=== PATIENT | male | born 1975 | race African-American/Black ===

== ENCOUNTER 2018-01-08 20:32 | Emergency (ER) | payer SELFPAY ==
[~2018-01-08] VITALS: Ht 182.9 cm; Wt 77.3 kg
[2018-01-08] MEDS ORDERED: ALBUTEROL SULFATE 5 MG/ML 20 ML NEB SOLN [BULK] NEB ONE ×2 (20:45→22:45)
[2018-01-08] MEDS ORDERED: IPRATROPIUM BROMIDE 0.5 MG/2.5 ML NEB SOLUTION NEB ONE ×3 (20:45→22:45)
[2018-01-08] MEDS ORDERED: ALBU8HFA IH (20:54)
[2018-01-08] MEDS ORDERED: FLUT110HFA IH (20:54)
[2018-01-08] MEDS ORDERED: ALBUTEROL SULFATE 2.5 MG/0.5 ML NEB SOLUTION NEB ONE (22:00)
[2018-01-08] MEDS ORDERED: PredniSONE 20 MG TABLET PO ONE (22:30)
[2018-01-09 00:46] VITALS: BP 127/72
== END 2018-01-09 00:57 | disposition home or self-care (01) ==
LOC: EMS 20:32
DX: J45.909 Unspecified asthma, uncomplicated (principal)
CPT/HCPCS: 71045; 94060; 94640; 94644; 99285; J7512

== ENCOUNTER 2018-03-19 15:55 | Emergency (ER) | payer SELFPAY ==
[~2018-03-19] VITALS: Ht 182.9 cm; Wt 81.8 kg
[~2018-03-19 15:55] MED LIST: ALBU8HFA IH; FLUT110HFA IH
[2018-03-19] MEDS ORDERED: ALBUTEROL SULFATE 5 MG/ML 20 ML NEB SOLN [BULK] NEB ONE ×2 (16:05→16:15)
[2018-03-19] MEDS ORDERED: ALBUTEROL SULFATE 2.5 MG/0.5 ML NEB SOLUTION NEB ONE (16:15)
[2018-03-19] MEDS ORDERED: IPRATROPIUM BROMIDE 0.5 MG/2.5 ML NEB SOLUTION NEB ONE ×3 (16:15)
[2018-03-19] MEDS ORDERED: MethylPREDNISolone SOD SUCC 125 MG/2 ML VIAL IVP ONE (16:15)
[2018-03-19] MEDS ORDERED: MAGNESIUM SULFATE 4 GM/WATER 100 ML IV ONE (16:15)
[2018-03-19 16:29] LABS: BASOPHILS % (AUTO) 0.6 % (0.0-2.0); EOSINOPHILS % (AUTO) 2.2 % (1.0-6.0); HEMATOCRIT 46.7 % (41-53); HEMOGLOBIN 15.3 g/dL (13.5-17.5); LYMPHOCYTES # (AUTO) 1.3 K/uL (1.0-4.8); LYMPHOCYTES % (AUTO) 10.9 % (22.0-44.0); MEAN CORPUSCULAR HEMOGLOBIN 27.3 pg (26.0-34.0); MEAN CORPUSCULAR HGB CONC 32.7 G/dL (31.0-37.0); MEAN CORPUSCULAR VOLUME 84 fL (80-100); MONOCYTES # (AUTO) 0.8 K/uL (0.1-1.0); MONOCYTES % (AUTO) 6.2 % (2.0-9.0); NEUTROPHILS # (AUTO) 9.8 K/uL (1.8-7.7); NEUTROPHILS % (AUTO) 80.1 % (40.0-70.0); PLATELET COUNT (AUTO) 255 K/uL (150-450); RED BLOOD CELL COUNT(AUTO) 5.59 MIL/uL (4.50-5.90); RED CELL DISTRIBUTION WIDTH 14.1 % (11.5-14.5)
[2018-03-19 16:37] LABS: ANION GAP 3 mmol/L (8-16); CARBON DIOXIDE 32 mmol/L (22-29); CHLORIDE 101 mmol/L (98-107); CREATININE 0.81 mg/dL (0.60-1.30); GLOMERULAR FILTR. RATE CALC > 60 mL/min (>60); GLUCOSE,RANDOM 76 mg/dL (70-110); POTASSIUM 3.9 mmol/L (3.5-5.1); SODIUM SERUM 136 mmol/L (136-145); UREA NITROGEN, BLOOD 8 mg/dL (7-18)
[2018-03-19 16:43] LABS: ALANINE AMINOTRANSFERASE 24 U/L (12-78); ALBUMIN 3.7 g/dL (3.4-5.0); ALKALINE PHOSPHATASE 93 U/L (46-116); ASPARTATE AMINOTRANSFERASE 19 U/L (15-37); BILIRUBIN,TOTAL 0.2 mg/dL (0.1-1.0); TOTAL PROTEIN, SERUM 7.8 g/dL (6.4-8.2)
[2018-03-19] MEDS ORDERED: LEVALBUTEROL HCL 1.25 MG/0.5 ML NEB SOLUTION NEB ONE (19:10)
[2018-03-19] MEDS ORDERED: ALBUTEROL SULFATE HFA 90 MCG/PUFF 8 GM INHALER IH ONE (19:45)
[2018-03-19 20:16] VITALS: BP 116/56
== END 2018-03-19 20:20 | disposition home or self-care (01) ==
LOC: EMS 15:56
DX: J45.901 Unspecified asthma with (acute) exacerbation (principal)
CPT/HCPCS: 36415; 71045; 80053; 85025; 94640; 94644; 94645; 96365; 96366; 96375; 99285; J2930; J3475; J3535

== ENCOUNTER 2018-04-14 09:04 | Emergency (ER) | payer SELFPAY ==
[~2018-04-14] VITALS: Ht 182.9 cm; Wt 81.8 kg
[2018-04-14] MEDS ORDERED: IPRATROPIUM BROMIDE 0.5 MG/2.5 ML NEB SOLUTION NEB ONE ×2 (09:30→10:30)
[2018-04-14] MEDS ORDERED: ALBUTEROL SULFATE 2.5 MG/0.5 ML NEB SOLUTION NEB ONE ×2 (09:30→10:30)
[2018-04-14] MEDS ORDERED: MethylPREDNISolone SOD SUCC 125 MG/2 ML VIAL IVP ONE (10:30)
[2018-04-14] MEDS ORDERED: ALBUTEROL SULFATE HFA 90 MCG/PUFF 8 GM INHALER IH ONE (11:45)
[2018-04-14 11:59] VITALS: BP 127/83
== END 2018-04-14 12:00 | disposition home or self-care (01) ==
LOC: EMS 09:05
DX: J45.901 Unspecified asthma with (acute) exacerbation (principal)
CPT/HCPCS: 71045; 94640; 96374; 99291; J2930; J3535

== ENCOUNTER 2018-05-02 10:33 | Emergency (ER) | payer SELFPAY ==
[~2018-05-02] VITALS: Ht 182.9 cm; Wt 81.8 kg
[2018-05-02] MEDS ORDERED: IPRATROPIUM BROMIDE 0.5 MG/2.5 ML NEB SOLUTION NEB ONE (12:15)
[2018-05-02] MEDS ORDERED: PredniSONE 20 MG TABLET PO ONE (12:15)
[2018-05-02] MEDS ORDERED: ALBUTEROL SULFATE 2.5 MG/0.5 ML NEB SOLUTION NEB ONE (12:15)
[2018-05-02] MEDS ORDERED: EPINEPHrine 1:1,000 [1 MG/ML] AMP SQ ONE (13:15)
[2018-05-02] MEDS ORDERED: ALBUTEROL SULFATE 5 MG/ML 20 ML NEB SOLN [BULK] NEB ONE (13:15)
[2018-05-02] MEDS ORDERED: ALBUTEROL SULFATE HFA 90 MCG/PUFF 8 GM INHALER IH ONE (14:00)
[2018-05-02 14:21] VITALS: BP 128/68
== END 2018-05-02 14:34 | disposition home or self-care (01) ==
LOC: EMS 10:35
DX: J45.901 Unspecified asthma with (acute) exacerbation (principal)
CPT/HCPCS: 94640; 94644; 99285; J7512; 94060; J3535

== ENCOUNTER 2018-05-26 02:01 | Emergency (ER) | payer SELFPAY ==
[~2018-05-26] VITALS: Ht 182.9 cm; Wt 81.8 kg
[2018-05-26] MEDS ORDERED: 0.9% SODIUM CHLORIDE 5 ML NEB SOLUTION NEB ONE ×2 (02:06→03:36)
[2018-05-26] MEDS ORDERED: IPRATROPIUM BROMIDE 0.5 MG/2.5 ML NEB SOLUTION NEB ONE ×2 (02:15→03:45)
[2018-05-26] MEDS ORDERED: MethylPREDNISolone SOD SUCC 125 MG/2 ML VIAL IVP ONE (02:15)
[2018-05-26] MEDS ORDERED: ALBUTEROL SULFATE 5 MG/ML 20 ML NEB SOLN [BULK] NEB ONE ×2 (02:15→03:45)
[2018-05-26] MEDS ORDERED: ALBUTEROL SULFATE HFA 90 MCG/PUFF 8 GM INHALER IH ONE (02:15)
[2018-05-26 04:47] VITALS: BP 135/82
== END 2018-05-26 04:56 | disposition home or self-care (01) ==
LOC: EMS 02:03
DX: J45.901 Unspecified asthma with (acute) exacerbation (principal)
CPT/HCPCS: 94640; 94644; 94645; 96374; 99291; J2930; J3535

== ENCOUNTER 2018-06-05 05:28 | Emergency (ER) | payer MEDICAID ==
[~2018-06-05] VITALS: Ht 182.9 cm; Wt 81.8 kg
[~2018-06-05 05:28] MED LIST changes: -FLUT110HFA IH
[2018-06-05] MEDS ORDERED: 0.9% SODIUM CHLORIDE 5 ML NEB SOLUTION NEB ONE (05:39)
[2018-06-05] MEDS ORDERED: ALBUTEROL SULFATE 5 MG/ML 20 ML NEB SOLN [BULK] NEB ONE (05:45)
[2018-06-05] MEDS ORDERED: IPRATROPIUM BROMIDE 0.5 MG/2.5 ML NEB SOLUTION NEB ONE (05:45)
[2018-06-05] MEDS ORDERED: PredniSONE 20 MG TABLET PO ONE (06:30)
[2018-06-05] MEDS ORDERED: EPINEPHrine 1:1,000 [1 MG/ML] AMP SQ ONE (06:30)
[2018-06-05] MEDS ORDERED: ALBUTEROL SULFATE HFA 90 MCG/PUFF 8 GM INHALER IH ONE (07:00)
[2018-06-05] MEDS ORDERED: BECLOMETHASONE DIPR HFA 80 MCG/PUFF 10.6 GM INHALER IH ONE (07:00)
[2018-06-05 08:57] VITALS: BP 132/69
== END 2018-06-05 09:02 | disposition home or self-care (01) ==
LOC: EMS 05:30
DX: J45.901 Unspecified asthma with (acute) exacerbation (principal)
CPT/HCPCS: 94640; 94644; 96372; 99285; J0171; J7512; J3535

== ENCOUNTER 2018-07-17 11:31 | Emergency (ER) | payer SELFPAY ==
[~2018-07-17] VITALS: Ht 182.9 cm; Wt 81.8 kg
[2018-07-17] MEDS ORDERED: ADV250 IH (11:39)
[2018-07-17] MEDS ORDERED: 0.9% SODIUM CHLORIDE 5 ML NEB SOLUTION NEB ONE ×2 (11:43→12:29)
[2018-07-17] MEDS ORDERED: ALBUTEROL SULFATE 2.5 MG/0.5 ML NEB SOLUTION NEB ONE (11:45)
[2018-07-17] MEDS ORDERED: IPRATROPIUM BROMIDE 0.5 MG/2.5 ML NEB SOLUTION NEB ONE (11:45)
[2018-07-17] MEDS ORDERED: MethylPREDNISolone SOD SUCC 125 MG/2 ML VIAL IM ONE (12:30)
[2018-07-17] MEDS ORDERED: ALBUTEROL SULFATE 5 MG/ML 20 ML NEB SOLN [BULK] NEB ONE (12:30)
[2018-07-17 13:53] VITALS: BP 135/75
== END 2018-07-17 14:21 | disposition home or self-care (01) ==
LOC: EMS 11:31
DX: J45.901 Unspecified asthma with (acute) exacerbation (principal)
CPT/HCPCS: 94640; 96372; 99284; J2930

== ENCOUNTER 2018-08-06 05:11 | Emergency (ER) | payer SELFPAY ==
[~2018-08-06] VITALS: Ht 182.9 cm; Wt 81.8 kg
[~2018-08-06 05:11] MED LIST changes: +ADV250 IH
[2018-08-06] MEDS ORDERED: IPRATROPIUM BROMIDE 0.5 MG/2.5 ML NEB SOLUTION NEB ONE (05:45)
[2018-08-06] MEDS ORDERED: ALBUTEROL SULFATE 5 MG/ML 20 ML NEB SOLN [BULK] NEB ONE ×2 (05:45→07:30)
[2018-08-06] MEDS ORDERED: PredniSONE 20 MG TABLET PO ONE (06:00)
[2018-08-06 10:40] VITALS: BP 128/81
[2018-08-06] MEDS ORDERED: ALBUTEROL SULFATE HFA 90 MCG/PUFF 8 GM INHALER IH ONE (10:45)
== END 2018-08-06 10:52 | disposition home or self-care (01) ==
LOC: EMS 05:11
DX: J45.901 Unspecified asthma with (acute) exacerbation (principal); Z79.899 Other long term (current) drug therapy
CPT/HCPCS: 71045; 94640; 94644; 94645; 99285; J7512; J3535

== ENCOUNTER 2018-08-20 18:15 | Emergency (ER) | payer SELFPAY ==
[~2018-08-20] VITALS: Ht 182.9 cm; Wt 81.8 kg
[2018-08-20] MEDS ORDERED: ALBUTEROL SULFATE 5 MG/ML 20 ML NEB SOLN [BULK] NEB ONE (18:30)
[2018-08-20] MEDS ORDERED: IPRATROPIUM BROMIDE 0.5 MG/2.5 ML NEB SOLUTION NEB ONE (18:30)
[2018-08-20] MEDS ORDERED: PredniSONE 20 MG TABLET PO ONE (18:30)
[2018-08-20] MEDS ORDERED: 0.9% SODIUM CHLORIDE 5 ML NEB SOLUTION NEB ONE (18:35)
[2018-08-20] MEDS ORDERED: ALBUTEROL SULFATE HFA 90 MCG/PUFF 8 GM INHALER IH ONE (20:00)
[2018-08-20 20:07] VITALS: BP 109/75
== END 2018-08-20 20:11 | disposition home or self-care (01) ==
LOC: EMS 18:15
DX: J45.909 Unspecified asthma, uncomplicated (principal)
CPT/HCPCS: 94640; 94644; 99285; J7512; J3535

== ENCOUNTER 2018-09-07 19:56 | Emergency (ER) | payer SELFPAY ==
[~2018-09-07] VITALS: Ht 182.9 cm; Wt 81.8 kg
[2018-09-07] MEDS ORDERED: ALBUTEROL SULFATE 5 MG/ML 20 ML NEB SOLN [BULK] NEB ONE ×2 (20:04→20:45)
[2018-09-07] MEDS ORDERED: IPRATROPIUM BROMIDE 0.5 MG/2.5 ML NEB SOLUTION NEB ONE ×2 (20:04→20:45)
[2018-09-07] MEDS ORDERED: PredniSONE 20 MG TABLET PO ONE (21:15)
[2018-09-07 22:00] VITALS: BP 111/64
[2018-09-07] MEDS ORDERED: ALBUTEROL SULFATE HFA 90 MCG/PUFF 8 GM INHALER IH ONE (22:30)
== END 2018-09-07 22:42 | disposition home or self-care (01) ==
LOC: EMS 19:57
DX: J45.909 Unspecified asthma, uncomplicated (principal); Z79.899 Other long term (current) drug therapy
CPT/HCPCS: 94640; 94644; 99285; J7512; J3535

== ENCOUNTER 2018-10-18 07:23 | Emergency (ER) | payer SELFPAY ==
[~2018-10-18] VITALS: Ht 182.9 cm; Wt 86.4 kg
[2018-10-18] MEDS ORDERED: ALBUTEROL SULFATE HFA 90 MCG/PUFF 8 GM INHALER IH ONE (07:45)
[2018-10-18] MEDS ORDERED: IPRATROPIUM BROMIDE 0.5 MG/2.5 ML NEB SOLUTION NEB ONE ×2 (07:45→09:45)
[2018-10-18] MEDS ORDERED: ALBUTEROL SULFATE 5 MG/ML 20 ML NEB SOLN [BULK] NEB ONE ×2 (07:45→09:45)
[2018-10-18] MEDS ORDERED: 0.9% SODIUM CHLORIDE 15 ML NEB SOLUTION NEB ONE ×2 (08:26→09:52)
[2018-10-18] MEDS ORDERED: PredniSONE 20 MG TABLET PO ONE (09:30)
[2018-10-18 11:13] VITALS: BP 122/72
== END 2018-10-18 11:28 | disposition home or self-care (01) ==
LOC: EMS 07:24
DX: J45.901 Unspecified asthma with (acute) exacerbation (principal); Z79.899 Other long term (current) drug therapy
CPT/HCPCS: 94640; 94644; 94645; 99285; J7512; J3535

== ENCOUNTER 2018-10-26 06:48 | Emergency (ER) | payer SELFPAY ==
[~2018-10-26] VITALS: Ht 182.9 cm; Wt 81.8 kg
[2018-10-26] MEDS ORDERED: ALBUTEROL SULFATE 2.5 MG/0.5 ML NEB SOLUTION NEB ONE (07:00)
[2018-10-26] MEDS ORDERED: IPRATROPIUM BROMIDE 0.5 MG/2.5 ML NEB SOLUTION NEB ONE ×3 (07:00→08:30)
[2018-10-26 08:20] VITALS: BP 145/80
[2018-10-26] MEDS ORDERED: ALBUTEROL SULFATE 5 MG/ML 20 ML NEB SOLN [BULK] NEB ONE ×2 (08:30)
[2018-10-26] MEDS ORDERED: PredniSONE 20 MG TABLET PO ONE (08:45)
[2018-10-26] MEDS ORDERED: ALBUTEROL SULFATE HFA 90 MCG/PUFF 8 GM INHALER IH ONE ×2 (10:30→10:45)
== END 2018-10-26 11:18 | disposition home or self-care (01) ==
LOC: EMS 06:50
DX: J45.909 Unspecified asthma, uncomplicated (principal)
CPT/HCPCS: 94640; 99285; J7512; J3535

== ENCOUNTER 2018-11-05 12:20 | Emergency (ER) | payer SELFPAY ==
[~2018-11-05] VITALS: Ht 182.9 cm; Wt 81.8 kg
[2018-11-05] MEDS ORDERED: ALBUTEROL SULFATE 5 MG/ML 20 ML NEB SOLN [BULK] NEB ONE ×2 (12:25→12:45)
[2018-11-05] MEDS ORDERED: IPRATROPIUM BROMIDE 0.5 MG/2.5 ML NEB SOLUTION NEB ONE ×2 (12:25→12:45)
[2018-11-05] MEDS ORDERED: MAGNESIUM SULFATE 2 GM/WATER 50 ML IV ONE (12:30)
[2018-11-05] MEDS ORDERED: MethylPREDNISolone SOD SUCC 125 MG/2 ML VIAL IVP ONE (12:30)
[2018-11-05 14:52] VITALS: BP 117/68
== END 2018-11-05 15:08 | disposition home or self-care (01) ==
LOC: EMS 12:22
DX: J45.909 Unspecified asthma, uncomplicated (principal); Z79.899 Other long term (current) drug therapy
CPT/HCPCS: 94644; 96365; 96366; 96375; 99291; J2930; J3475

== ENCOUNTER 2018-11-17 11:23 | Emergency (ER) | payer SELFPAY ==
[~2018-11-17] VITALS: Ht 183.5 cm; Wt 84.1 kg
[2018-11-17] MEDS ORDERED: IPRATROPIUM BROMIDE 0.5 MG/2.5 ML NEB SOLUTION NEB ONE ×3 (11:45→14:15)
[2018-11-17] MEDS ORDERED: ALBUTEROL SULFATE 2.5 MG/0.5 ML NEB SOLUTION NEB ONE (11:45)
[2018-11-17] MEDS ORDERED: PredniSONE 20 MG TABLET PO ONE (12:00)
[2018-11-17] MEDS ORDERED: ALBUTEROL SULFATE 5 MG/ML 20 ML NEB SOLN [BULK] NEB ONE ×2 (12:00→14:15)
[2018-11-17] MEDS ORDERED: ALBUTEROL SULFATE HFA 90 MCG/PUFF 8 GM INHALER IH ONE (12:15)
[2018-11-17 15:27] VITALS: BP 114/57
== END 2018-11-17 15:34 | disposition home or self-care (01) ==
LOC: EMS 11:24
DX: J45.901 Unspecified asthma with (acute) exacerbation (principal); Z79.899 Other long term (current) drug therapy
CPT/HCPCS: 94640; 94644; 94645; 99285; J7512; J3535

== ENCOUNTER 2018-12-04 07:09 | Emergency (ER) | payer SELFPAY ==
[~2018-12-04] VITALS: Ht 182.9 cm; Wt 84.1 kg
[2018-12-04] MEDS ORDERED: ALBUTEROL SULFATE 5 MG/ML 20 ML NEB SOLN [BULK] NEB ONE ×2 (07:45→09:45)
[2018-12-04] MEDS ORDERED: PredniSONE 20 MG TABLET PO ONE (07:45)
[2018-12-04] MEDS ORDERED: IPRATROPIUM BROMIDE 0.5 MG/2.5 ML NEB SOLUTION NEB ONE ×2 (07:45→09:45)
[2018-12-04] MEDS ORDERED: 0.9% SODIUM CHLORIDE 5 ML NEB SOLUTION NEB ONE ×2 (07:48→09:50)
[2018-12-04 10:46] VITALS: BP 133/70
[2018-12-04] MEDS ORDERED: ALBUTEROL SULFATE HFA 90 MCG/PUFF 8 GM INHALER IH ONE (11:30)
== END 2018-12-04 11:37 | disposition home or self-care (01) ==
LOC: EMS 07:11
DX: J45.909 Unspecified asthma, uncomplicated (principal); Z79.899 Other long term (current) drug therapy
CPT/HCPCS: 94640; 94644; 94645; 99285; J7512; J3535

== ENCOUNTER 2018-12-12 01:37 | Emergency (ER) | payer SELFPAY ==
[~2018-12-12] VITALS: Ht 182.9 cm; Wt 81.8 kg
[2018-12-12] MEDS ORDERED: IPRATROPIUM BROMIDE 0.5 MG/2.5 ML NEB SOLUTION NEB ONE ×2 (02:15→02:30)
[2018-12-12] MEDS ORDERED: ALBUTEROL SULFATE 2.5 MG/0.5 ML NEB SOLUTION NEB ONE (02:15)
[2018-12-12] MEDS ORDERED: MethylPREDNISolone SOD SUCC 125 MG/2 ML VIAL IVP ONE (02:15)
[2018-12-12] MEDS ORDERED: ALBUTEROL SULFATE 5 MG/ML 20 ML NEB SOLN [BULK] NEB ONE (02:30)
[2018-12-12] MEDS ORDERED: MAGNESIUM SULFATE 2 GM/WATER 50 ML IV ONE (02:30)
[2018-12-12] MEDS ORDERED: 0.9% SODIUM CHLORIDE 15 ML NEB SOLUTION NEB ONE (03:22)
[2018-12-12] MEDS ORDERED: ALBUTEROL SULFATE HFA 90 MCG/PUFF 8 GM INHALER IH ONE (05:00)
[2018-12-12 05:02] VITALS: BP 119/71
== END 2018-12-12 05:20 | disposition home or self-care (01) ==
LOC: EMS 01:38
DX: J45.901 Unspecified asthma with (acute) exacerbation (principal)
CPT/HCPCS: 71045; 93005; 94640; 94644; 96365; 96366; 96375; 99285; J2930; J3475; J3535

== ENCOUNTER 2018-12-24 05:21 | Emergency (ER) | payer SELFPAY ==
[~2018-12-24] VITALS: Ht 182.9 cm; Wt 81.8 kg
[2018-12-24] MEDS ORDERED: IPRATROPIUM BROMIDE 0.5 MG/2.5 ML NEB SOLUTION NEB ONE ×2 (05:30→09:00)
[2018-12-24] MEDS ORDERED: ALBUTEROL SULFATE 5 MG/ML 20 ML NEB SOLN [BULK] NEB ONE (05:30)
[2018-12-24] MEDS ORDERED: 0.9% SODIUM CHLORIDE 5 ML NEB SOLUTION NEB ONE (05:32)
[2018-12-24] MEDS ORDERED: PredniSONE 20 MG TABLET PO ONE (06:15)
[2018-12-24] MEDS ORDERED: ALBUTEROL SULFATE 2.5 MG/0.5 ML NEB SOLUTION NEB ONE (09:00)
[2018-12-24] MEDS ORDERED: ALBUTEROL SULFATE HFA 90 MCG/PUFF 8 GM INHALER IH ONE (10:30)
[2018-12-24 10:37] VITALS: BP 120/69
== END 2018-12-24 11:28 | disposition home or self-care (01) ==
LOC: EMS 05:21
DX: J45.909 Unspecified asthma, uncomplicated (principal); Z79.899 Other long term (current) drug therapy
CPT/HCPCS: 94640; 94644; 94645; 99285; J7512; J3535

== ENCOUNTER 2019-01-01 05:59 | Emergency (ER) | payer SELFPAY ==
[~2019-01-01] VITALS: Ht 182.9 cm; Wt 81.8 kg
[2019-01-01] MEDS ORDERED: ALBUTEROL SULFATE 5 MG/ML 20 ML NEB SOLN [BULK] NEB ONE (06:10)
[2019-01-01] MEDS ORDERED: IPRATROPIUM BROMIDE 0.5 MG/2.5 ML NEB SOLUTION NEB ONE ×3 (06:15→09:15)
[2019-01-01] MEDS ORDERED: 0.9% SODIUM CHLORIDE 5 ML NEB SOLUTION NEB ONE ×2 (06:21→10:27)
[2019-01-01] MEDS ORDERED: MethylPREDNISolone SOD SUCC 125 MG/2 ML VIAL IVP ONE (06:45)
[2019-01-01] MEDS ORDERED: LEVALBUTEROL HCL 1.25 MG/0.5 ML NEB SOLUTION NEB ONE (09:10)
[2019-01-01] MEDS ORDERED: MAGNESIUM SULFATE 2 GM/WATER 50 ML IV ONE (09:15)
[2019-01-01 11:11] LABS: EOSINOPHILS % (AUTO) 0 % (1.0-6.0); HEMATOCRIT 43.4 % (41-53); HEMOGLOBIN 14.2 g/dL (13.5-17.5); LYMPHOCYTES # (AUTO) 0.1 K/uL (1.0-4.8); LYMPHOCYTES % (AUTO) 1.4 % (22.0-44.0); MEAN CORPUSCULAR HGB CONC 32.7 G/dL (31.0-37.0); MEAN CORPUSCULAR VOLUME 86 fL (80-100); MONOCYTES # (AUTO) 0.1 K/uL (0.1-1.0); MONOCYTES % (AUTO) 0.5 % (2.0-9.0); NEUTROPHILS # (AUTO) 10.5 K/uL (1.8-7.7); PLATELET COUNT (AUTO) 230 K/uL (150-450); RED BLOOD CELL COUNT(AUTO) 5.06 MIL/uL (4.50-5.90); RED CELL DISTRIBUTION WIDTH 13.7 % (11.5-14.5)
[2019-01-01 11:12] LABS: NEUTROPHILS % (AUTO) 98.1 % (40.0-70.0)
[2019-01-01 11:22] LABS: PROTHROMBIN TIME 10.2 SEC (9.4-11.6)
[2019-01-01 11:26] LABS: APPEARANCE,URINE CLOUDY (CLEAR); BILIRUBIN,URINE NEGATIVE (NEGATIVE); GLUCOSE, URINE (UA) NEGATIVE (NEGATIVE); KETONES,URINE NEGATIVE (NEGATIVE); LEUKOCYTE ESTERASE ,URINE NEGATIVE (NEGATIVE); NITRATE,URINE NEGATIVE (NEGATIVE); OCCULT BLOOD,URINE NEGATIVE (NEGATIVE); PH,URINE 7.5 (5.0-8.0); PROTEIN,URINE NEGATIVE (NEGATIVE)
[2019-01-01 11:46] LABS: ANION GAP 6 mmol/L (8-16); CALCIUM, TOTAL 8.7 mg/dL (8.8-10.5); CARBON DIOXIDE 29 mmol/L (22-29); CHLORIDE 106 mmol/L (98-107); CREATININE 0.92 mg/dL (0.60-1.30); GLOMERULAR FILTR. RATE CALC > 60 mL/min (>60); GLUCOSE,RANDOM 113 mg/dL (70-110); POTASSIUM 3.5 mmol/L (3.5-5.1); SODIUM SERUM 141 mmol/L (136-145); UREA NITROGEN, BLOOD 12 mg/dL (7-18)
[2019-01-01 11:59] LABS: B-TYPE NATRIURETIC PEPTIDE < 5 pg/mL (0-100)
[2019-01-01 12:06] LABS: AMPHET/METH SCREEN,URINE NEGATIVE (NEGATIVE); BARBITURATE SCREEN, URINE NEGATIVE (NEGATIVE); BENZODIAZEPINES SCREEN,URINE NEGATIVE (NEGATIVE); CANNABINOID SCREEN,URINE NEGATIVE (NEGATIVE); COCAINE SCREEN,URINE NEGATIVE (NEGATIVE); METHADONE SCREEN, URINE NEGATIVE (NEGATIVE); OPIATE SCREEN,URINE NEGATIVE (NEGATIVE)
[2019-01-01 12:11] LABS: PHENCYCLIDINE SCREEN,URINE NEGATIVE (NEGATIVE)
[2019-01-01 12:12] LABS: ALANINE AMINOTRANSFERASE 24 U/L (12-78); ALBUMIN 3.6 g/dL (3.4-5.0); ALKALINE PHOSPHATASE 70 U/L (46-116); ASPARTATE AMINOTRANSFERASE 14 U/L (15-37); BILIRUBIN,TOTAL 0.3 mg/dL (0.1-1.0); CREATINE KINASE, TOTAL ONLY 161 U/L (39-308); TOTAL PROTEIN, SERUM 7.4 g/dL (6.4-8.2)
[2019-01-01 13:03] VITALS: BP 129/70
== END 2019-01-01 13:08 | disposition home or self-care (01) ==
LOC: EMS 05:59
DX: J45.909 Unspecified asthma, uncomplicated (principal); R94.31 Abnormal electrocardiogram [ECG] [EKG]; Z79.899 Other long term (current) drug therapy; Z98.890 Other specified postprocedural states
CPT/HCPCS: 36415; 71045; 80053; 80307; 81003; 82550; 83880; 84484; 85025; 85610; 85730; 93005; 94640; 96365; 96366; 96375; 99285; J2930; J3475; 94644

== ENCOUNTER 2019-01-15 08:04 | Emergency (ER) | payer SELFPAY ==
[~2019-01-15] VITALS: Ht 182.9 cm; Wt 81.6 kg
[2019-01-15] MEDS ORDERED: ALBUTEROL SULFATE 2.5 MG/0.5 ML NEB SOLUTION NEB ONE (08:15)
[2019-01-15] MEDS ORDERED: IPRATROPIUM BROMIDE 0.5 MG/2.5 ML NEB SOLUTION NEB ONE ×2 (08:15→08:45)
[2019-01-15] MEDS ORDERED: 0.9% SODIUM CHLORIDE 5 ML NEB SOLUTION NEB ONE ×3 (08:25→08:55)
[2019-01-15] MEDS ORDERED: ALBUTEROL SULFATE 5 MG/ML 20 ML NEB SOLN [BULK] NEB ONE (08:45)
[2019-01-15] MEDS ORDERED: PredniSONE 20 MG TABLET PO ONE (08:45)
[2019-01-15 10:52] VITALS: BP 128/77
== END 2019-01-15 11:04 | disposition home or self-care (01) ==
LOC: EMS 08:04
DX: J45.901 Unspecified asthma with (acute) exacerbation (principal)
CPT/HCPCS: 94640; 94644; 99285; J7512

== ENCOUNTER 2019-01-21 15:27 | Emergency (ER) | payer SELFPAY ==
[~2019-01-21] VITALS: Ht 182.9 cm; Wt 86.4 kg
[~2019-01-21 15:27] MED LIST changes: -ADV250 IH
[2019-01-21] MEDS ORDERED: IPRATROPIUM BROMIDE 0.5 MG/2.5 ML NEB SOLUTION NEB ONE ×2 (15:30→16:00)
[2019-01-21] MEDS ORDERED: ALBUTEROL SULFATE 2.5 MG/0.5 ML NEB SOLUTION NEB ONE (15:30)
[2019-01-21] MEDS ORDERED: ALBUTEROL SULFATE 5 MG/ML 20 ML NEB SOLN [BULK] NEB ONE ×2 (15:52)
[2019-01-21] MEDS ORDERED: 0.9% SODIUM CHLORIDE 15 ML NEB SOLUTION NEB ONE (15:52)
[2019-01-21] MEDS ORDERED: PredniSONE 20 MG TABLET PO ONE (16:30)
[2019-01-21] MEDS ORDERED: ALBUTEROL SULFATE HFA 90 MCG/PUFF 8 GM INHALER IH ONE (18:00)
[2019-01-21 18:09] VITALS: BP 126/73
== END 2019-01-21 18:12 | disposition home or self-care (01) ==
LOC: EMS 15:27
DX: J45.909 Unspecified asthma, uncomplicated (principal); R03.0 Elevated blood-pressure reading, without diagnosis of hypertension; Z98.890 Other specified postprocedural states; Z79.899 Other long term (current) drug therapy
CPT/HCPCS: 94640; 94644; 99285; J7512; J3535